=== PATIENT | female | born 1940 | race Caucasian/White ===

== ENCOUNTER → 2016-08-01 | Outpatient (CLI) | payer OTHER, MEDICARE ==
[~2016-08-01] MED LIST: ASPI81TA28 PO; ATOR-22 PO; MULT-506 PO
--- NOTE | 2016-08-01 13:36 | DIAGNOSTIC IMAGING REPORT ---
NUCLEAR GASTRIC EMPTYING STUDY: CLINICAL HISTORY: R10.13 Epigastric [id number] COMPARISON STUDY: None TECHNIQUE: Following the oral administration of 1.1 mCi of technetium 99m sulfur colloid in egg sandwich and 8 ounces of water, static abdominal images are performed anteriorly and posteriorly at 0 minutes, 1 hour, 2 hours, and 4 hour time intervals. Gastric emptying was calculated utilizing the geometric mean method. FINDINGS: There is approximately 78 % gastric activity remaining at the 1 hour time interval, 45 % at the 2 hour time interval (normal is less than 60%), and 12 % remaining at the 4 hour time interval (normal is less than 10%). These findings are consistent with slight routine gastric contents on the 4 hour image. IMPRESSION: Normal 1 hour and 2 hour gastric emptying. Slightly increased retained gastric contents on the 4 hour image with 12% retention (normal less than 10%). Electronically signed by: Thomas Alva M.D. 08/01/2016 1:35 PM Dictated Date/Time: 08/01/2016 1:26 PM
== END | disposition home or self-care (01) ==
LOC: C.NUCL 08:22
PROVIDERS: ATTEND Internal Medicine
DX: R10.13 Epigastric pain (principal)

== ENCOUNTER 2018-11-23 19:37 | Inpatient (IN) ==
[2018-11-23] MEDS ORDERED: ASPIRIN CHEW 324 MG ONE (19:41)
[2018-11-23] MEDS ORDERED: ONDANSETRON INJ 2 MG/ML 2 ML VIAL ONE (19:41)
[2018-11-23] MEDS ORDERED: MAGNESIUM SULFATE / D5W 1 GM/100 ML BAG IV ONE (19:59)
[2018-11-23] MEDS ORDERED: METOPROLOL TARTRATE 1 MG/ML VIAL IV STA (20:04)
[2018-11-23 20:21] LABS: Basophils # (auto) 0.02 K/uL (0-0.2); Basophils % (auto) 0.2 %; Eosinophils # (auto) 0.02 K/uL (0-0.5); Eosinophils % (auto) 0.2 %; Hematocrit (blood only) 39.2 % (37-47); Hemoglobin 13.2 g/dL (12.0-16.0); Immature Granulocytes # (auto) 0.02 K/uL (0.00-0.02); Immature Granulocytes % (auto) 0.2 %; Lymphocytes # (auto) 1.01 K/uL (1.2-3.4); Lymphocytes % (auto) 12.6 %; Mean Corpuscular Hgb Conc 33.7 g/dL (32-36); Mean Corpuscular Volume 89.3 fL (80-100); Mean Platelet Volume 10.7 fL (7.4-10.4); Monocytes # (auto) 0.29 K/uL (0.11-0.59); Monocytes % (auto) 3.6 %; Neutrophils # (auto) 6.68 K/uL (1.4-6.5); Neutrophils % (auto) 83.2 %; Platelet Count 189 K/uL (130-400); RDW Coefficient of Variation 14.1 % (11.5-14.5); RDW Standard Deviation 46.4 fL (36.4-46.3); Red Blood Count 4.39 M/uL (4.2-5.4); White Blood Count 8.04 K/uL (4.8-10.8)
[2018-11-23 20:23] LABS: iSTAT Creatinine 0.7 mg/dl (0.6-1.3); iSTAT Hemoglobin 13.9 g/dl (12.0-16.0); iSTAT Ionized Calcium 1.14 mmol/l (1.12-1.32)
[2018-11-23 20:37] LABS: Alanine Aminotransferase 52 U/L (12-78); Aspartate Aminotransferase 25 U/L (15-37); BUN Creatinine Ratio 19.7 (10-20); Blood Urea Nitrogen 17 mg/dl (7-18); Calcium 9.7 mg/dl (8.5-10.1); Carbon Dioxide 25 mmol/L (21-32); Chloride 108 mmol/L (98-107); Creatinine Clr Calc Pharmacy 48.1 ml/min; Est GFR (African American) 74.5; Est GFR (Non-African American) 64.3; Glucose 129 mg/dl (70-99); Potassium 4.1 mmol/L (3.5-5.1); Sodium 142 mmol/L (136-145)
[2018-11-23 20:42] LABS: Albumin Globulin Ratio 1.1 (0.9-2); Alkaline Phosphatase 135 U/L (45-117); Bilirubin,Total 0.6 mg/dl (0.2-1); Creatine Kinase 145 U/L (26-192); Creatine Kinase MB 1.9 ng/ml (0.5-3.6); Globulin 3.5 gm/dl (2.5-4.0); Total Protein 7.5 gm/dl (6.4-8.2); Troponin I < 0.015 ng/ml (0-0.045)
--- NOTE | 2018-11-23 20:53 | XRay Report ---
XR chest 1V portable CLINICAL HISTORY: Atypical chest pain COMPARISON STUDY: 04/27/2015 FINDINGS: The heart is at the upper limits of normal in size. There is no failure. There is no focal pulmonary consolidation. There are no pleural effusions.[ IMPRESSION: No active disease in the chest. Electronically signed by: Thomas Alva M.D. 11/23/2018 8:52 PM
[2018-11-23] MEDS ORDERED: NITROGLYCERIN 2% OINTMENT 30GM TUBE EXT STA (21:18)
[2018-11-23 21:27] LABS: Partial Thromboplastin Ratio 0.8; Partial Thromboplastin Time 21.4 Seconds (21.0-31.0); Prothrombin Time 10.2 Seconds (9.0-12.0)
--- NOTE | 2018-11-23 22:13 | History & Physical Report ---
Date of Service November 23, 2018 Assessment & Plan (1) Chest pain: 78 y/o F Hx HTN, HLD, GERD, CAD/angina. She underwent a scheduled cardiac cath 10/19/18 which demonstrated 70% stenosis of the ostial branch of the LAD. A stent could not practically be placed and it was not clear if this was related to her CP. She was placed on high-intensity statin therapy as a result. She presents with acute onset of central CP which she describes as burning in character. The pain is nonradiating, accompanied by lightheadedness, nausea and an episode of vomiting. She denies SOB or diaphoresis. On arrival to the ER she appeared to be fluctuating between a sinus rhythm and AF. Her rate was in the 70s. She was provided with a low dose of B carlos which reduced her rate to the 30s for a brief period and then into the 50s and 60s. She appeared to be exhibiting intermittent 2nd degree heart block and slow AF at that point, although she remained asymptomatic shortly after her arrival in the ER. It is not clear if her erratic rhythm was related to her symptoms therefore. Initial labs are unremarkable including a negative troponin. 1) CP - unclear if related to arrhythmias. She will be monitored on telemetry, fully anticoagulated, cont ASA, statin. Consult cardio. Did not tolerate beta blockers. Serial enzymes ordered. 2) Arrhythmias - including AF and possibly heart block. No additional meds. Monitor on telemetry. Eventually, if she is prone to symptomatic AF and cannot tolerate a rate agent, she may need evaluation for a pacer. 3) HTN - hold diltiazem - can sub for an CHEO if needed. 4) HLD - cont statin 5) GERD - cont famotidine Full code - Heparin Total time for this admit including review of labs, meds, imaging, records - discussion with pt and ER attending 35 min. Present on Admission?: No History of Present Illness Chief Complaint: Chest pain Primary Care Provider: Virgilio Wray MD 78 y/o F Hx HTN, HLD, GERD, CAD/angina. She underwent a scheduled cardiac cath 10/19/18 which demonstrated 70% stenosis of the ostial branch of the LAD. A stent could not practically be placed and it was not clear if this was related to her CP. She was placed on high-intensity statin therapy as a result. She presents with acute onset of central CP which she describes as burning in character. The pain is nonradiating, accompanied by lightheadedness, nausea and an episode of vomiting. She denies SOB or diaphoresis. On arrival to the ER she appeared to be fluctuating between a sinus rhythm and AF. Her rate was in the 70s. She was provided with a low dose of B carlos which reduced her rate to the 30s for a brief period and then into the 50s and 60s. She appeared to be exhibiting intermittent 2nd degree heart block and slow AF at that point, although she remained asymptomatic shortly after her arrival in the ER. It is not clear if her erratic rhythm was related to her symptoms therefore. Initial labs are unremarkable including a negative troponin. PMH: 1) CAD - 70% ostial stenosis - medically managed. 2) HTN 3) HLD 4) GERD Surgical: Distant history of lumbar surgery Social: Does not drink or smoke Family: Father owing to a CVA Allergies Allergy/AdvReac Type Severity Reaction Status Date / Time No Known Allergies Allergy Verified 11/23/18 19:59 Home Medications Home Medications Medication Instructions Recorded Confirmed Type famotidine 40 mg PO BID 10/15/18 11/23/18 History atorvastatin 80 mg PO HS 11/23/18 11/23/18 History diltiazem HCl 180 mg PO QAM 11/23/18 11/23/18 History multivitamin 1 tab PO QAM 11/23/18 11/23/18 History Past Med/Surg History Medical History No significant past medical history (Chronic) Social History Preferred Language: Greek Beliefs That Will Affect Care: None Current Living Situation: Alone Feels Safe at Home: Yes Smoking Status: Never smoker Hx Alcohol Use: No Hx Substance Use: No Review of Systems Review of Systems: Gen: Denies fevers, night sweats, rigors, fatigue, malaise, weight loss/gain ENT: Denies congestion, throat pain, hearing loss Eyes: Denies acute visual changes CV: CP as above Pulmonary: Denies SOB, cough, wheezing GI: Denies N/V, diarrhea, constipation Neuro: Denies acute or unilateral weakness, acute gait impairment, headache or acute visual changes Musculoskeletal: Denies joint pain, inflammation Endocrine: Denies polydipsia, polyuria Skin: Denies acute rashes or ulcers Physical Exam Physical Exam: General: AAO x 3, no distress ENT: No erythema or exudates, no thrush Eyes: GUILLERMINA, EOMI Head and neck: Normocephalic, atraumatic, No JVD, neck is supple. Chest/heart: Nontender, S1,2, irreg, no murmurs, no gallops Lungs: CTAB, no wheezing or crackles Abdomen: Nontender, nondistended, BS+ Neuro: AAO x 3, speech is clear, no unilateral weakness or loss of sensation, coordination intact Musculoskeletal: No joint inflammation, muscle tenderness, FROM Skin: No acute rashes or ulcers Extremities: No clubbing, cyanosis, edema Results & Data Vital Signs (Past 12 Hours) Vital Signs Temp Pulse Resp BP Pulse Ox 11/23/18 21:31 69 19 147/65 H 94 11/23/18 21:01 52 L 20 134/61 96 11/23/18 20:31 41 L 19 122/59 L 96 11/23/18 20:20 58 L 19 138/55 L 97 11/23/18 20:11 138/56 L 11/23/18 20:01 60 19 138/56 L 99 11/23/18 19:55 97.7 F 62 20 133/61 98 Diagnostic Findings EKG: Initial: AF with a rate in the 70s Follow-up: Sinus with sinus arrhythmia - possibly 2' heart block - rate 50s PG Care Time/CCT Total # of Minutes Spent Total Time Spent with Patient: Total time spent is greater than 50% in coordination of care (as documented) at patient's floor/unit and/or counseling patient: (1) Chest pain Chest pain type: unspecified Qualified Code(s): R07.9 - Chest pain, unspecified
[2018-11-23] MEDS ORDERED: ALUMINUM/MAGNESIUM SUSP 30 ML UDC PO PRN (23:18)
[2018-11-23] MEDS ORDERED: POLYETHYLENE (MIRALAX) 17 GM PACK PO PRN (23:18)
[2018-11-23] MEDS ORDERED: MAGNESIUM HYDROXIDE SUSP 30 ML UDC PO PRN (23:18)
[2018-11-23] MEDS ORDERED: ONDANSETRON INJ 2 MG/ML 2 ML VIAL IV PRN (23:18)
[2018-11-23] MEDS ORDERED: NITROGLYCERIN SL 0.4 MG/TAB TAB SL PRN (23:18)
[2018-11-23] MEDS ORDERED: ACETAMINOPHEN 325 MG TAB PO PRN (23:18)
[2018-11-23] MEDS ORDERED: D5NSS + 20MEQ KCL 20 MEQ/1,000 ML BAG IV SCH (23:30)
--- NOTE | 2018-11-23 23:35 | Emergency Department Note ---
Entered by Dalila Granda acting as a scribe for Dima Easley MD History of Present Illness General Chief complaint: Chest Pain Time Seen by Provider: 11/23/18 19:51 Source: patient Mode of arrival: EMS History of Present Illness Provider complaint: chest pain Onset (ago): hour(s) 4 Location: chest Radiation: non-radiation Associated symptoms: + nausea/vomiting Treatments prior to arrival: aspirin The patient is a 78 year old female who presents to the Emergency Room with complaints of chest pain. The patient states that she has been having chest pressure since 1630 today. She reports that she does not currently have chest pain, but she is experiencing nausea. She reports that she vomited twice today. She states that when the pain arrived, it felt like heat in her chest. She reports that she was also lightheaded earlier today. The patient notes that she had a cardiac catheter placed one month ago, but denies any stents put in place. The patient notes that she took aspirin prior to arrival. Home Medications Home Medications Medication Instructions Recorded Confirmed Type famotidine 40 mg PO BID 10/15/18 11/27/18 History atorvastatin 80 mg PO HS 11/23/18 11/27/18 History diltiazem HCl 180 mg PO QAM 11/23/18 11/27/18 History aspirin 81 mg tablet,delayed 81 mg PO DAILY #30 tab 11/25/18 11/27/18 Rx release Allergies Allergy/AdvReac Type Severity Reaction Status Date / Time No Known Allergies Allergy Verified 11/27/18 10:15 Past Med/Surg History Medical History Atypical chest pain No significant past medical history (Chronic) Surgical History History of cardiac cath History of carpal tunnel release History of cataract surgery History of ear surgery History of kidney surgery Family History Father Hypertension Stroke Mother Cardiac disorder Sister Stroke Social History Preferred Language: Bulgarian Communication Ability: Effective Beliefs That Will Affect Care: None Current Living Situation: Alone Feels Safe at Home: Yes Smoking Status: Never smoker Hx Alcohol Use: No Hx Substance Use: No Review of Systems See HPI for pertinent positives & negatives. and A total of 10 systems reviewed and were otherwise negative Physical Exam Vital Signs Vital Signs - 24 hr 11/23/18 19:55 11/23/18 20:01 11/23/18 20:05 Temperature 36.5 C Temperature Source Oral Sepsis Recent Fever Within 48 Hours No Sepsis New/Unexplained Change in Mental Status No Sepsis Action Taken by Nursing No Action Required Pulse Rate 62 60 Pulse Rate from SpO2 Sensor 60 Respiratory Rate 20 19 Respiratory Effort / Characteristics Non-Labored Spontaneous Respiratory Depth Normal Blood Pressure 133/61 138/56 L Blood Pressure Mean 85 83 Pulse Oximetry 98 99 Oxygen Delivery Method Room Air Room Air Room Air 11/23/18 20:11 11/23/18 20:20 11/23/18 20:31 Temperature Temperature Source Sepsis Recent Fever Within 48 Hours Sepsis New/Unexplained Change in Mental Status Sepsis Action Taken by Nursing Pulse Rate 58 L 41 L Pulse Rate from SpO2 Sensor 56 L 44 L Respiratory Rate 19 19 Respiratory Effort / Characteristics Respiratory Depth Blood Pressure 138/56 L 138/55 L 122/59 L Blood Pressure Mean 82 80 Pulse Oximetry 97 96 Oxygen Delivery Method Room Air Room Air 11/23/18 21:01 11/23/18 21:31 Temperature Temperature Source Sepsis Recent Fever Within 48 Hours Sepsis New/Unexplained Change in Mental Status Sepsis Action Taken by Nursing Pulse Rate 52 L 69 Pulse Rate from SpO2 Sensor 51 L 78 Respiratory Rate 20 19 Respiratory Effort / Characteristics Respiratory Depth Blood Pressure 134/61 147/65 H Blood Pressure Mean 85 92 Pulse Oximetry 96 94 Oxygen Delivery Method Room Air Room Air GENERAL: Awake, alert, well-appearing, in no acute distress HENT: Normocephalic, atraumatic. Oropharynx unremarkable. EYES: Normal conjunctiva. Sclera non-icteric. NECK: Supple. No nuchal rigidity. FROM. No JVD. RESPIRATORY: Clear to auscultation. CARDIAC: Regular rate, normal rhythm. Extremities warm and well perfused. Pulses equal. ABDOMEN: Soft, non-distended. No tenderness to palpation. No rebound or guarding. No masses. RECTAL: Deferred. MUSCULOSKELETAL: Chest examination reveals no tenderness. The back is symmetrical on inspection without obvious abnormality. There is no CVA tenderness to palpation. No joint edema. LOWER EXTREMITIES: Calves are equal size bilaterally and non-tender. No edema. No discoloration. NEURO: Normal sensorium. No sensory or motor deficits noted. SKIN: No rash or jaundice noted. Course 1953: The patient was evaluated in room C9, and a complete history and physical examination were performed. 2118: I reviewed the patient's [facility] He will evaluate the patient for further management. Consultations Consultation #1: Dr. Hoff- [facility] Hospitalist Time: :19 Administered Medications Discontinued Medications Aspirin (Ecotrin Ectab) 81 mg PO QAM MAYO Stop: 12/24/18 08:59 Last Admin: 11/24/18 07:56 Dose: 81 mg Documented by: [id number] Famotidine (Pepcid) 40 mg PO BID MAYO Stop: 12/24/18 08:59 Last Admin: 11/24/18 07:56 Dose: 40 mg Documented by: [id number] Heparin Sodium (Porcine) (Heparin Sodium (Porcine)) 5,000 units SQ Q8 MAYO Stop: 12/24/18 05:59 Last Admin: 11/24/18 06:14 Dose: 5,000 units Documented by: [id number] Cosigned by: [id number] Magnesium Sulfate/Dextrose (Magnesium Sulfate / D5w) 1 gm in 100 mls @ 100 mls/hr IV ONE ONE Stop: 11/23/18 20:58 Last Infusion: 11/23/18 21:24 Dose: 0 mls/hr Documented by: [id number] Admin: 11/23/18 20:11 Dose: 100 mls/hr Documented by: [id number] Potassium Chloride/Dextrose/Sod Cl (D5nss + 20meq Kcl) 20 meq in 1,000 mls @ 80 mls/hr IV .[id number] MAYO Stop: 11/24/18 11:59 Last Infusion: 11/24/18 10:29 Dose: 0 mls/hr Documented by: [id number] Admin: 11/24/18 00:02 Dose: 80 mls/hr Documented by: [id number] Metoprolol Tartrate (Lopressor) 5 mg IV NOW STA Stop: 11/23/18 20:05 Last Admin: 11/23/18 20:11 Dose: 5 mg Documented by: [id number] Nitroglycerin (Nitro-Bid 2%) 1 inch EXT NOW STA Stop: 11/23/18 21:19 Last Admin: 11/23/18 21:26 Dose: 1 inch Documented by: [id number] Medical Decision Making Differential Diagnosis Differential diagnosis: Etiologies such as cardiac ischemia, aortic dissection, pulmonary embolism, pneumonia, pneumothorax, musculoskeletal, infections, eren carditis, myocarditis, esophageal rupture, gastrointestinal, as well as others were entertained. Medical Records Attestation: I reviewed the patient's medical records. Home Medications Current Medication List: was personally reviewed by me Laboratory Data Attestation: I reviewed the patient's lab results. Result diagrams: 11/23/18 20:09 11/23/18 20:09 Lab Results 11/23/18 11/23/18 11/23/18 Range/Units 20:09 20:09 20:10 WBC 8.04 (4.8-10.8) K/uL RBC 4.39 (4.2-5.4) M/uL Hgb 13.2 (12.0-16.0) g/dL POC Hgb 13.9 (12.0-16.0) g/dl Hct 39.2 (37-47) % POC Hct 41 (37-47) % MCV 89.3 (80-100) fL MCH 30.1 (25-34) pg MCHC 33.7 (32-36) g/dL RDW Std Deviation 46.4 H (36.4-46.3) fL RDW Coeff of Salazar 14.1 (11.5-14.5) % Plt Count 189 (130-400) K/uL MPV 10.7 H (7.4-10.4) fL Immature Gran % (Auto) 0.2 % Neut % (Auto) 83.2 % Lymph % (Auto) 12.6 % Coles % (Auto) 3.6 % Eos % (Auto) 0.2 % Baso % (Auto) 0.2 % Immature Gran # (Auto) 0.02 (0.00-0.02) K/uL Neut # (Auto) 6.68 H (1.4-6.5) K/uL Lymph # (Auto) 1.01 L (1.2-3.4) K/uL Coles # (Auto) 0.29 (0.11-0.59) K/uL Eos # (Auto) 0.02 (0-0.5) K/uL Baso # (Auto) 0.02 (0-0.2) K/uL PT (9.0-12.0) Seconds INR (0.9-1.1) APTT (21.0-31.0) Seconds PTT Ratio POC Sodium 142 (135-144) mEq/L Sodium 142 (136-145) mmol/L POC Potassium 4.0 (3.3-5.0) mEq/L Potassium 4.1 (3.5-5.1) mmol/L POC Chloride 104 (101-112) mEq/L Chloride 108 H (98-107) mmol/L Carbon Dioxide 25 (21-32) mmol/L POC Total CO2 22 L (24-31) mEq/l Anion Gap 9.0 (3-11) POC Anion Gap 21.0 (16-25) mmol/L POC BUN 17 (7-18) mg/dl BUN 17 (7-18) mg/dl Creatinine 0.87 (0.6-1.2) mg/dl POC Creatinine 0.7 (0.6-1.3) mg/dl Est Cr Clr Drug Dosing 48.1 ml/min Est GFR ( Amer) 74.5 Est GFR (Non-Af Amer) 64.3 BUN/Creatinine Ratio 19.7 (10-20) Glucose 129 H (70-99) mg/dl POC Glucose (other) 138 H (70-99) mg/dl Calcium 9.7 (8.5-10.1) mg/dl POC Ioniz Calcium Jered 1.14 (1.12-1.32) mmol/l Total Bilirubin 0.6 (0.2-1) mg/dl AST 25 (15-37) U/L ALT 52 (12-78) U/L Alkaline Phosphatase 135 H (45-117) U/L Total Creatine Kinase 145 (26-192) U/L CK-MB (CK-2) 1.9 (0.5-3.6) ng/ml CK/CKMB % Calc 1.3 (0-3.0) Troponin I < 0.015 (0-0.045) ng/ml Total Protein 7.5 (6.4-8.2) gm/dl Albumin 4.0 (3.4-5.0) gm/dl Globulin 3.5 (2.5-4.0) gm/dl Albumin/Globulin Ratio 1.1 (0.9-2) Lipase 160 (73-393) U/L 11/23/18 Range/Units 20:10 WBC (4.8-10.8) K/uL RBC (4.2-5.4) M/uL Hgb (12.0-16.0) g/dL POC Hgb (12.0-16.0) g/dl Hct (37-47) % POC Hct (37-47) % MCV (80-100) fL MCH (25-34) pg MCHC (32-36) g/dL RDW Std Deviation (36.4-46.3) fL RDW Coeff of Salazar (11.5-14.5) % Plt Count (130-400) K/uL MPV (7.4-10.4) fL Immature Gran % (Auto) % Neut % (Auto) % Lymph % (Auto) % Coles % (Auto) % Eos % (Auto) % Baso % (Auto) % Immature Gran # (Auto) (0.00-0.02) K/uL Neut # (Auto) (1.4-6.5) K/uL Lymph # (Auto) (1.2-3.4) K/uL Coles # (Auto) (0.11-0.59) K/uL Eos # (Auto) (0-0.5) K/uL Baso # (Auto) (0-0.2) K/uL PT 10.2 (9.0-12.0) Seconds INR 1.0 (0.9-1.1) APTT 21.4 (21.0-31.0) Seconds PTT Ratio 0.8 POC Sodium (135-144) mEq/L Sodium (136-145) mmol/L POC Potassium (3.3-5.0) mEq/L Potassium (3.5-5.1) mmol/L POC Chloride (101-112) mEq/L Chloride (98-107) mmol/L Carbon Dioxide (21-32) mmol/L POC Total CO2 (24-31) mEq/l Anion Gap (3-11) POC Anion Gap (16-25) mmol/L POC BUN (7-18) mg/dl BUN (7-18) mg/dl Creatinine (0.6-1.2) mg/dl POC Creatinine (0.6-1.3) mg/dl Est Cr Clr Drug Dosing ml/min Est GFR ( Amer) Est GFR (Non-Af Amer) BUN/Creatinine Ratio (10-20) Glucose (70-99) mg/dl POC Glucose (other) (70-99) mg/dl Calcium (8.5-10.1) mg/dl POC Ioniz Calcium Jered (1.12-1.32) mmol/l Total Bilirubin (0.2-1) mg/dl AST (15-37) U/L ALT (12-78) U/L Alkaline Phosphatase (45-117) U/L Total Creatine Kinase (26-192) U/L CK-MB (CK-2) (0.5-3.6) ng/ml CK/CKMB % Calc (0-3.0) Troponin I (0-0.045) ng/ml Total Protein (6.4-8.2) gm/dl Albumin (3.4-5.0) gm/dl Globulin (2.5-4.0) gm/dl Albumin/Globulin Ratio (0.9-2) Lipase (73-393) U/L Imaging Data Radiologist's Impression: Radiology results as stated below per my review and the radiologist's interpretation: XR chest 1V portable CLINICAL HISTORY: Atypical chest pain COMPARISON STUDY: 04/27/2015 FINDINGS: The heart is at the upper limits of normal in size. There is no failure. There is no focal pulmonary consolidation. There are no pleural effusions.[ IMPRESSION: No active disease in the chest. Electronically signed by: Thomas Alva M.D. 11/23/2018 8:52 PM ECG Data Attestation: I personally reviewed and interpreted this ECG as follows: Indication: chest pain Rate (beats per minute): 62 Rhythm: atrial fibrillation Findings: no ST depression and no ST elevation Additional Comments: A second EKG reads: normal sinus rhythm, rate of 63, no ST elevation, or ST depression Third EKG at 2124 is unchanged from previous read Blood Pressure Blood Pressure Findings: Normal blood pressure Blood Pressure Disposition: did not require urgent referral MDM Narrative This is a 78-year-old female who presents emergency department complaining of chest burning. On arrival to the emergency department the patient appears to be moving between normal sinus rhythm along with atrial fibrillation. She is also throwing frequent PVCs. Due to the nature of the arrhythmia I did discuss the case with the die storage clerk on-call who recommended trying a beta-carlos. This resulted in the patient's heart rate decreasing into the 30s. Due to this in the irregular arrhythmias I did discuss the case with the hospitalist service who agreed to admit the patient. Patient and family were in agreement with the treatment plan. Impression & Plan Chest pain Discharge Plan Visit Data *Final* Discharge Date/Time: 11/23/18 22:25 Chief Complaint: Chest Pain ED Provider: Dima Easley Discharge Problem: Chest pain Patient Disposition: Admitted As Inpatient Discharge Instructions Interventions: ED Discharge Assessment Last Done: 11/23/18 22:25 Discharge Problem: Chest pain Qualifiers: Chest pain type: unspecified Qualified Code(s): R07.9 - Chest pain, unspecified The scribe's documentation has been prepared under my direction and personally reviewed by me in its entirety. I confirm that the note above accurately reflects all work, treatment, procedures, and medical decision making performed by me.
[2018-11-24] MEDS ORDERED: HEPARIN SOD 5,000 UNIT/0.5 ML VIAL SQ SCH (06:00)
--- NOTE | 2018-11-24 08:18 | Hospitalist Progress Note ---
Date of Service November 24, 2018 Assessment & Plan (1) Chest pain: 78 y/o F Hx HTN, HLD, GERD, CAD/angina. She underwent a scheduled cardiac cath 10/19/18 which demonstrated 70% stenosis of the ostial branch of the LAD. A stent could not practically be placed and it was not clear if this was related to her CP. She was placed on high-intensity statin therapy as a result. She presents with acute onset of central CP which she describes as burning in character. The pain is nonradiating, accompanied by lightheadedness, nausea and an episode of vomiting. She denies SOB or diaphoresis. On arrival to the ER she appeared to be fluctuating between a sinus rhythm and AF. Her rate was in the 70s. She was provided with a low dose of B acrlos which reduced her rate to the 30s for a brief period and then into the 50s and 60s. She appeared to be exhibiting intermittent 2nd degree heart block and slow AF at that point, although she remained asymptomatic shortly after her arrival in the ER. It is not clear if her erratic rhythm was related to her symptoms therefore. Initial labs are unremarkable including a negative troponin. 1) CP - unclear if related to arrhythmias. She will be monitored on telemetry, fully anticoagulated, cont ASA, statin. Consult cardio. Did not tolerate beta blockers. Serial enzymes ordered. 2) Arrhythmias - including AF and possibly heart block. No additional meds. Monitor on telemetry. Eventually, if she is prone to symptomatic AF and cannot tolerate a rate agent, she may need evaluation for a pacer. 3) HTN - hold diltiazem - can sub for an CHEO if needed. 4) HLD - cont statin 5) GERD - cont famotidine Full code - Heparin Total time for this admit including review of labs, meds, imaging, records - discussion with pt and ER attending 35 min. Results & Data Vital Signs (Past 12 Hours) Vital Signs Temp Pulse Pulse Resp BP BP Pulse Ox 11/24/18 07:53 36.8 C 46 L 16 136/63 96 11/24/18 04:00 36.8 C 42 L 17 133/57 L 94 11/23/18 23:44 36.7 C 49 L 17 122/58 L 94 11/23/18 22:53 36.8 C 55 L 16 167/71 H 95 06/23/19 22:01 67 14 153/73 H 98 11/23/18 21:31 69 19 147/65 H 94 11/23/18 21:01 52 L 20 134/61 96 11/23/18 20:31 41 L 19 122/59 L 96 11/23/18 20:20 58 L 19 138/55 L 97 PG Care Time/CCT Total # of Minutes Spent Total Time Spent with Patient: Total time spent is greater than 50% in coordination of care (as documented) at patient's floor/unit and/or counseling patient: (1) Chest pain Chest pain type: unspecified Qualified Code(s): R07.9 - Chest pain, unspecified
[2018-11-24] MEDS ORDERED: ASPIRIN 81 MG ECTAB PO SCH (09:00)
[2018-11-24] MEDS ORDERED: FAMOTIDINE 20 MG TAB PO SCH (09:00)
--- NOTE | 2018-11-24 10:47 | Cardiology Consultation ---
Date of Consultation November 24, 2018 Assessment & Plan (1) Chest pain: I do not believe her symptoms of chest discomfort represent an acute coronary syndrome or angina. She was evaluated for coronary stenosis based on frequent PVCs, atypical chest complaints and an abnormal stress test. However her coronary angiography was not consistent with her symptoms and she has not had symptoms of any exertional angina. The symptoms she experienced yesterday were atypical in that they were not exertional. They involved vomiting. They lasted for several hours without any elevation in her cardiac biomarkers. Do not believe this represented a coronary syndrome. She feels well this morning. Perhaps this represented some form gastrointestinal disturbance and woman with known reflux and hiatal hernia. (2) Coronary artery disease: She is known to have an element of coronary disease. This was evaluated with invasive study a few weeks ago. He did appear to have some ostial LAD disease, but intracoronary ultrasound did not reveal significant ostial disease. Surprisingly, she did have some more significant disease in the mid LAD which was not apparent on angiography. However, she has not had exertional symptoms which should be the case if this were an obstructive lesion. Do not believe her current symptoms are related. Certainly she did not have an acute coronary syndrome leading up to today's admission. She should continue on her current outpatient medical regimen. (3) Abnormal electrocardiogram [ECG] [EKG]: Her initial EKG was interpreted as atrial fibrillation. However, the EKG available in her record simply demonstrates artifact with underlying sinus rhythm and sinus arrhythmia. Review of her telemetry did not reveal any evidence of atrial fibrillation. She has some irregularity in her heart rhythm, but there is no evidence of heart block either. She is known to have frequent PVCs in atrial ectopy. However, she has never been symptomatic from the arrhythmia. I do not believe this represents a change in her known rhythm difficulties. Do not believe this requires any additional evaluation. I do not believe this requires any change in her medical therapy. History of Present Illness Reason for Consultation: The patient is a 78-year-old woman known to me from the outpatient setting who presented with symptoms of chest burning and vomiting. Patient states she was feeling well yesterday when approximately 2:30 p.m. she began to experience a heat in the precordium. This was somewhat unc omfortable and moderate in severity. It later progressed to a sense of nausea and eventually vomiting. The patient felt like the symptoms would subside and waited several hours before contacting a friend who brought her to the emergency room. She continued to have some symptoms in the emergency room in even afterwards. It is unclear what eventually resolved her symptoms. She claims to have had similar symptoms in the past but not to this severity and not involving vomiting. There was no exertional component. This morning she feels quite well and states that his symptoms have resolved entirely. She did undergo coronary angiography a few weeks ago. That did identify a concerning lesion in the mid LAD, but the patient had not had symptoms of exertional angina and no intervention was performed. Since that procedure the patient has maintained her usual level of activity which includes frequent walking for 45 minutes at a time. This walk often involves at ascending hills. She did not report any symptoms of chest discomfort or limiting dyspnea associated with that activity. Attending Physician: Adrian Flores MD Allergies Allergy/AdvReac Type Severity Reaction Status Date / Time No Known Allergies Allergy Verified 11/23/18 19:59 Home Medications Home Medications Medication Instructions Recorded Confirmed Type famotidine 40 mg PO BID 10/15/18 11/23/18 History atorvastatin 80 mg PO HS 11/23/18 11/23/18 History diltiazem HCl 180 mg PO QAM 11/23/18 11/23/18 History multivitamin 1 tab PO QAM 11/23/18 11/23/18 History Patient History Medical History No significant past medical history (Chronic) Social History Preferred Language: Serbian Communication Ability: Effective Beliefs That Will Affect Care: None Current Living Situation: Alone Feels Safe at Home: Yes Smoking Status: Never smoker Hx Alcohol Use: No Hx Substance Use: No Review of Systems Review of Systems: All systems reviewed & are unremarkable except as noted in HPI & below She has not report any recent fevers or chills. No upper respiratory symptoms. No abdominal pain. No change in her bowel movements. No close contacts with similar symptoms. No sense of palpitation Physical Exam Physical Exam: She is alert and oriented x3. Mood affect appear normal. She answered all questions appropriately. HEENT: Sclerae are anicteric. Pupils are equal and reactive to light and accommodation. Extraocular movements were intact. Neuro: Cranial nerves intact Neck: Examination of the submandibular region did not reveal any significant lymphadenopathy. Carotids are palpable bilaterally and free of bruits on auscultation. There was no evidence of jugular venous distention. The thyroid was not enlarged. Lungs: Lungs are clear to auscultation bilaterally. There are no rales wheezes or rhonchi. She has normal respiratory effort without use of accessory muscles. There is normal pulmonary excursion. Cardiac: The rhythm was regular. S1 and S2 were normal. There are no murmurs on examination. The PMI was not markedly displaced on palpation. Abdomen: The abdomen was soft and nontender. Extremities: Patient has bilateral radial pulses that are equal in intensity. There is no evidence cyanosis or clubbing. There was no evidence of significant peripheral edema bilaterally. Skin: There are no rashes noted on examination today. Results & Data Vital Signs (Past 12 Hours) Vital Signs Temp Pulse Resp BP Pulse Ox 11/24/18 10:32 36.8 C 46 L 16 136/63 96 11/24/18 07:53 36.8 C 46 L 16 136/63 96 11/24/18 04:00 36.8 C 42 L 17 133/57 L 94 11/23/18 23:44 36.7 C 49 L 17 122/58 L 94 11/23/18 22:53 36.8 C 55 L 16 167/71 H 95 Laboratory Results Abnormal Lab Results 11/23/18 11/23/18 11/23/18 20:09 20:09 20:10 WBC 8.04 RBC 4.39 Hgb 13.2 POC Hgb 13.9 Hct 39.2 POC Hct 41 MCV 89.3 MCH 30.1 MCHC 33.7 RDW Std Deviation 46.4 H RDW Coeff of Salazar 14.1 Plt Count 189 MPV 10.7 H Immature Gran % (Auto) 0.2 Neut % (Auto) 83.2 Lymph % (Auto) 12.6 [place] % (Auto) 3.6 Eos % (Auto) 0.2 Baso % (Auto) 0.2 Immature Gran # (Auto) 0.02 Neut # (Auto) 6.68 H Lymph # (Auto) 1.01 L [place] # (Auto) 0.29 Eos # (Auto) 0.02 Baso # (Auto) 0.02 PT INR APTT PTT Ratio POC Sodium 142 Sodium 142 POC Potassium 4.0 Potassium 4.1 POC Chloride 104 Chloride 108 H Carbon Dioxide 25 POC Total CO2 22 L Anion Gap 9.0 POC Anion Gap 21.0 POC BUN 17 BUN 17 Creatinine 0.87 POC Creatinine 0.7 Est Cr Clr Drug Dosing 48.1 Est GFR ( Amer) 74.5 Est GFR (Non-Af Amer) 64.3 BUN/Creatinine Ratio 19.7 Glucose 129 H POC Glucose (other) 138 H Calcium 9.7 POC Ioniz Calcium Jered 1.14 Total Bilirubin 0.6 AST 25 ALT 52 Alkaline Phosphatase 135 H Total Creatine Kinase 145 CK-MB (CK-2) 1.9 CK/CKMB % Calc 1.3 Troponin I < 0.015 Total Protein 7.5 Albumin 4.0 Globulin 3.5 Albumin/Globulin Ratio 1.1 Lipase 160 11/23/18 11/23/18 11/24/18 20:10 23:25 06:27 WBC RBC Hgb POC Hgb Hct POC Hct MCV MCH MCHC RDW Std Deviation RDW Coeff of Salazar Plt Count MPV Immature Gran % (Auto) Neut % (Auto) Lymph % (Auto) [place] % (Auto) Eos % (Auto) Baso % (Auto) Immature Gran # (Auto) Neut # (Auto) Lymph # (Auto) [place] # (Auto) Eos # (Auto) Baso # (Auto) PT 10.2 INR 1.0 APTT 21.4 PTT Ratio 0.8 POC Sodium Sodium POC Potassium Potassium POC Chloride Chloride Carbon Dioxide POC Total CO2 Anion Gap POC Anion Gap POC BUN BUN Creatinine POC Creatinine Est Cr Clr Drug Dosing Est GFR ( Amer) Est GFR (Non-Af Amer) BUN/Creatinine Ratio Glucose POC Glucose (other) Calcium POC Ioniz Calcium Jered Total Bilirubin AST ALT Alkaline Phosphatase Total Creatine Kinase CK-MB (CK-2) CK/CKMB % Calc Troponin I < 0.015 < 0.015 Total Protein Albumin Globulin Albumin/Globulin Ratio Lipase (1) Chest pain Chest pain type: unspecified Qualified Code(s): R07.9 - Chest pain, unspecified
--- NOTE | 2018-11-24 14:58 | Discharge Summary ---
Date of Service November 24, 2018 Admission HPI Per Admitting Provider 78 y/o F Hx HTN, HLD, GERD, CAD/angina. She underwent a scheduled cardiac cath 10/19/18 which demonstrated 70% stenosis of the ostial branch of the LAD. A stent could not practically be placed and it was not clear if this was related to her CP. She was placed on high-intensity statin therapy as a result. She presents with acute onset of central CP which she describes as burning in character. The pain is nonradiating, accompanied by lightheadedness, nausea and an episode of vomiting. She denies SOB or diaphoresis. On arrival to the ER she appeared to be fluctuating between a sinus rhythm and AF. Her rate was in the 70s. She was provided with a low dose of B carlos which reduced her rate to the 30s for a brief period and then into the 50s and 60s. She appeared to be exhibiting intermittent 2nd degree heart block and slow AF at that point, although she remained asymptomatic shortly after her arrival in the ER. It is not clear if her erratic rhythm was related to her symptoms therefore. Initial labs are unremarkable including a negative troponin. PMH: 1) CAD - 70% ostial stenosis - medically managed. 2) HTN 3) HLD 4) GERD Surgical: Distant history of lumbar surgery Social: Does not drink or smoke Family: Father owing to a CVA Principal Diagnosis non cardiac chest pain, suspect GI loss's Discharge Exam Constitutional well developed and average body habitus Eyes no conjunctival abnormality and no scleral abnormality Neck normal visual inspection and trachea midline Respiratory normal respiratory effort; no respiratory distress Auscultation: lungs clear to auscultation bilaterally Cardiovascular RRR, no murmur, no edema Gastrointestinal (Abdomen) normal bowel sounds, soft, nontender, no hepatosplenomegaly Musculoskeletal no cyanosis or clubbing, extremities motor strength 5/5 Discharge Data Allergies Allergy/AdvReac Type Severity Reaction Status Date / Time No Known Allergies Allergy Verified 11/23/18 19:59 Consultations 11/23/18 21:01 ED Decision to Admit Stat 11/23/18 23:18 Consult Cardiology Routine Hospital Course (1) Chest pain: 78 y/o F Hx HTN, HLD, GERD, CAD/angina. She underwent a scheduled cardiac cath 10/19/18 which demonstrated 70% stenosis of the ostial branch of the LAD. A stent could not practically be placed and it was not clear if this was related to her CP. She was placed on high-intensity statin therapy as a result. She presents with acute onset of central CP which she describes as burning in character. The pain is nonradiating, accompanied by lightheadedness, nausea and an episode of vomiting. She denies SOB or diaphoresis. On arrival to the ER she appeared to be fluctuating between a sinus rhythm and AF. Her rate was in the 70s. She was provided with a low dose of B carlos which reduced her rate to the 30s for a brief period and then into the 50s and 60s. She appeared to be exhibiting intermittent 2nd degree heart block and slow AF at that point, although she remained asymptomatic shortly after her arrival in the ER. It is not clear if her erratic rhythm was related to her symptoms therefore. Initial labs are unremarkable including a negative troponin. CP - cardiology did see and does not feel this is cardiac in nature cont ASA, statin. Consult cardio. Did not tolerate beta blockers. Serial enzymes ordered. Arrhythmias -cardiology does not feel is assured afib, does not recommend full anticoagulation HTN - diltiazem - HLD - cont statin GERD - cont famotidine Total Time Total Time Spent Total Time Spent (In Minutes): greater than 30 minutes were required to prepare discharge Discharge Plan Discharge Items Patient Disposition: Home - Self-Care Reason For Visit: CP Discharge Diagnosis: non cardiac chest pain Discharge Goals: Diagnostic testing Activity: Resume your previous activity Non-emergency contact: Primary Care Provider and Flag Signaler Call non-emergency contact if: you have any medication questions Follow-up/Referrals: Virgilio Wray III, MD [Primary Care Provider] - (follow up appointment at your primary care physician office- the office will call you with an appointment date and time) Diet: Heart Healthy Addtl Provider Instructions: please try to watch your diet please discuss your symptoms with our family doctor and follow up with Dr Christian Prescriptions: Continued famotidine 40 mg Tablet 40 mg PO BID RF: 0 multivitamin Tablet 1 tab PO QAM RF: 0 diltiazem HCl 180 mg capsule,extended release 24 hr 180 mg PO QAM RF: 0 atorvastatin 80 mg tablet 80 mg PO HS RF: 0 No Action aspirin [Adult Low Dose Aspirin] 81 mg tablet,delayed release (DR/EC) 81 mg PO DAILY Qty: 30 RF: 5 Stand-Alone Forms: Call Back Authorization, [facility]/Other Patient Handouts: Angina, GERD, GERD Lifestyle Changes, Heart Attack Warning Signs Discharge Orders: Discharge Order (Routine); Ordered 11/24/18 Ordered By: Adrian Flores Admission Data Admit Date/Time: 11/23/18 21:56 Attending Provider: Adrian Flores Admit Provider: Steven Hoff Primary Care Provider: Virgilio Wray III Other Providers: Steven Hoff ; Julio Archibald Service: Telemetry Other Interventions: Discharge Summary Assessment (RN) Last Done: 11/24/18 10:32 DC Date/Time DO NOT enter until pt leaves facility: 11/24/18 10:53
[2018-11-24] MEDS ORDERED: ATORVASTATIN 40 MG TAB PO SCH (21:00)
== END 2018-11-24 10:53 | disposition home or self-care (01) | DRG 313 ==
LOC: ED 19:37 → SUATTDRO 21:56 → 2S 21:56

== ENCOUNTER 2023-09-19 12:05 | Observation (INO) ==
[2023-09-19 12:59] LABS: Basophils # (auto) 0.03 K/uL (0.00-0.20); Basophils % (auto) 0.2 %; Eosinophils # (auto) 0.01 K/uL (0.00-0.50); Eosinophils % (auto) 0.1 %; Hematocrit (blood only) 45.5 % (37.0-47.0); Hemoglobin 14.9 g/dl (12.0-16.0); Immature Granulocytes # (auto) 0.06 K/uL (0.01-0.20); Immature Granulocytes % (auto) 0.5 %; Lymphocytes # (auto) 1.79 K/uL (1.20-3.40); Lymphocytes % (auto) 14.7 %; Mean Corpuscular Hemoglobin 29.7 pg (25.0-34.0); Mean Corpuscular Hgb Conc 32.7 g/dL (32.0-36.0); Mean Corpuscular Volume 90.8 fL (80.0-100.0); Mean Platelet Volume 12.1 fL (9.4-12.4); Monocytes # (auto) 0.94 K/uL (0.11-0.59); Monocytes % (auto) 7.7 %; Neutrophils # (auto) 9.31 K/uL (1.40-6.50); Neutrophils % (auto) 76.8 %; Platelet Count 187 K/uL (130-400); RDW Standard Deviation 46.6 fL (36.4-46.3); Red Blood Count 5.01 M/uL (4.20-5.40); White Blood Count 12.14 K/ul (4.8-10.8)
--- NOTE | 2023-09-19 13:02 | XRay Report ---
SINGLE VIEW CHEST CLINICAL HISTORY: Atypical chest pain FINDINGS: An AP, portable, upright chest radiograph is compared to study dated 09/03/2021. The heart is enlarged noting atherosclerotic calcification of the thoracic aorta. The pulmonary vasculature is no ncongested. Chronic interstitial thickening similar to previous. There is mild bibasilar scarring/ate lectasis. The lungs and pleural spaces are otherwise clear. No pneumothorax is seen. The skeletal str uctures are osteopenic. The bony thorax is grossly intact. A surgical anchor is noted in the right hu meral head. IMPRESSION: Cardiomegaly with no acute cardiopulmonary abnormality identified. ACT 112: Negative or not required by law. Electronically signed by: Yg Benedict M.D. 09/19/2023 1:01 PM
[2023-09-19 13:20] LABS: BUN Creatinine Ratio 15.6 (10-20); Calcium 10.8 mg/dl (8.6-10.3); Creatinine Clr Calc Pharmacy 42.4 ml/min; Est GFR (Non-African American) 59.5 ml/min; Magnesium 2.1 mg/dl (1.7-2.4); Potassium 4.1 mmol/L (3.5-5.1)
[2023-09-19 13:22] LABS: Troponin I High Sensitivity 7.4 pg/ml (0-14)
[2023-09-19 13:26] LABS: INR 0.9 (0.9-1.1); Partial Thromboplastin Ratio 0.9; Partial Thromboplastin Time 26 Seconds (21-31); Prothrombin Time 10.2 Seconds (9.0-12.0)
--- NOTE | 2023-09-19 16:27 | History & Physical Report ---
Date of Service September 19, 2023 Assessment & Plan (1) Non-ST elevation AL (NSTEMI): Plan: Unclear symptoms actually from this as ongoing for hours with only slight troponin rise. Suspected NSTEMI due to troponin increase with no alternative explanation and triage note concerning for ACS. ASA 324mg PO given prior to hospital, continue 81mg PO daily Intolerant to beta-blockers previously Continue atorvastatin 80mg PO HS EKG in AM Trend troponins overnight TTE NPO after midnight for possible cardiac cath tomorrow Consult cardiology (2) Coronary artery disease: Plan: non-obstructive on cath October 2018 (3) PVC (premature ventricular contraction): Plan: Known to have frequent PVCs, often bigeminy, intolerant to BB and diltiazem Monitor for NSVT/VT overnight Plan VTE Prophylaxis - heparin IV Diet - heart healthy, NPO after midnight Disposition - observation to PCU Admission and Anticipated Discharge Date Admission Date: September 19, 2023 History of Present Illness Chief Complaint: Chest pain Primary Care Provider: Dom Dahl DO Eden Hernandez is an 83 year old female who presents to the ER with chest pain. Triage note appears different to the history she current is telling me. Triage reports chest pain in upper epigastric area radiating to lower neck and bilateral shoulder starting last night then woke up with persistent symptoms this morning therefore called 911. Total 324mg PO aspirin given prior to ER. x2 nitroglycerin took pain from 9/10 to 0/10. Her main complaint on admission is bilateral neck pain which is not reproducible but is worse on rotating her head. 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 She felt this is her reflux. The neck pain started last night around 8pm, she is unsure how long it lasted but it was not that severe and she was able to fall asleep. Today she woke up initially without symptoms however while getting dressed her neck pain returned and did not get better with aspirin therefore she called EMS. She reports this is currently 10/10 however when I returned without having received pharmacological intervention this went down to a 5/10 with repositioning alone. She notes this neck pain is better on exertion when she is moving around as she thinks about it less. She has a longstanding history of palpitation related to ventricular bigeminy with intolerance to beta-blockers and diltiazem therefore currently is not on any treatment for this. She underwent cardiac catheterization for atypical chest pain and frequent PVCs in [place] [address] Christian with non -obstructive coronary artery disease at that time. Allergies Allergy/AdvReac Type Severity Reaction Status Date / Time diltiazem AdvReac Intermediate Verified 09/19/23 13:13 metoprolol AdvReac Intermediate Verified 09/19/23 13:13 nebivolol AdvReac Intermediate Verified 09/19/23 13:13 Home Medications Medication Instructions Recorded Confirmed Type multivit with min-folic 1 tab PO QAM 12/12/18 09/19/23 History acid-lutein 400 mcg-250 mcg chewable tablet (Centrum Silver) famotidine 40 mg tablet 40 mg PO HS #90 tabs 11/20/22 09/19/23 Rx atorvastatin 80 mg tablet 80 mg PO HS #90 tabs 03/29/23 09/19/23 Rx Past Med/Surg History Medical History Fracture of distal end of right radius with malunion (~03/03/21) Type 2 diabetes mellitus without complication Atypical chest pain Lesion of left ear Nonobstructive atherosclerosis of coronary artery Arrhythmia FREQUENT PVC'S Kidney stones Osteoarthritis GERD (gastroesophageal reflux disease) Hiatal hernia Stomach pain Nausea Hyperlipidemia Abnormal biliary HIDA scan Cubital tunnel syndrome on left Postmenopausal hormone replacement therapy Surgical History History of ear surgery History of shoulder surgery History of kidney surgery History of esophagogastroduodenoscopy (EGD) History of carpal tunnel release History of cataract surgery BILATERAL History of cardiac cath NO STENTS. 11.12.18 AT [facility] WITH DR. CHRISTIAN HAD PROCEDURE D/T CHEST BURNING AT THAT TIME, EXERCISES REGULARLY. Family History Father Hypertension Stroke Mother Cardiac disorder Sister Stroke Family/Other FHx: uterine cancer Denies family history of Ovarian cancer Prostate cancer Coronary heart disease Myocardial infarction Breast cancer Colorectal cancer Social History Smoking Status: Never smoker Second Hand Exposure: Yes (EX-); Do You Dip or Chew Tobacco: No; Hx Alcohol Use: No Hx Substance Use: No Preferred Language: Slovak Communication Ability: Effective Hearing Ability: Normal Human Resources Project Coordinator Required: No Beliefs That Will Affect Care: None Current Living Situation: Alone current occupational status: retired Other Information That Helps Us Care for You: No Feels Safe at Home: Yes Safety Concerns: Feels Safe At This Time Childhood Exposure to Second-Hand Smoke: No Diet: regular caffeine: Yes Dental Care, Regularly: Yes Physical Activity Frequency: 1-2 Times per Week Seatbelt Use: always Sunscreen Use: Yes Assistive Devices: None Review of Systems Review of Systems: All systems reviewed & are unremarkable except as noted in HPI & below Physical Exam Constitutional: WD/WN, vitals as above Eyes: + anicteric sclerae; normal pupil size ENMT: external ear and nose normal, oropharynx normal Neck: trachea midline, no thyromegaly Respiratory: normal respiratory effort, lungs clear to auscultation Cardiovascular: Rate/Rhythm: regular rate and + irregularly irregular Heart Sounds: no murmur Extremities: normal capillary refill; no calf tenderness and no pedal edema Gastrointestinal (Abdomen): normal bowel sounds, soft, nontender, no hepatosplenomegaly Musculoskeletal: no cyanosis or clubbing, extremities motor strength 5/5 Skin: no rashes, warm and dry Neurologic: moves all extremities and awake; not confused Psychiatric: A+Ox3, euthymic affect Results & Data Results & Data Vital Signs (Past 12 Hours) Vital Signs Temp Pulse Pulse Resp BP BP Pulse Ox 09/19/23 13:25 93 H 16 189/77 H 97 09/19/23 12:18 80 18 100 09/19/23 12:14 98 H 09/19/23 12:11 36.8 C 84 18 181/81 H 99 O2 Del Method 09/19/23 13:25 Room Air 09/19/23 12:18 Room Air 09/19/23 12:14 09/19/23 12:11 Room Air Laboratory Results Abnormal lab results 09/19/23 09/19/23 Range/Units 12:13 14:37 WBC 12.14 H (4.8-10.8) K/ul RDW Std Deviation 46.6 H (36.4-46.3) fL Neut # (Auto) 9.31 H (1.40-6.50) K/uL [place] # (Auto) 0.94 H (0.11-0.59) K/uL Glucose 117 H (70-99(Fasting)) mg/dl Calcium 10.8 H (8.6-10.3) mg/dl Troponin I High Sens 41.2 H D (0-14) pg/ml Diagnostic Findings SINGLE VIEW CHEST CLINICAL HISTORY: Atypical chest pain FINDINGS: An AP, portable, upright chest radiograph is compared to study dated 09/03/2021. The heart is enlarged noting atherosclerotic calcification of the thoracic aorta. The pulmonary vasculature is noncongested. Chronic interstitial thickening similar to previous. There is mild bibasilar scarring/atelectasis. The lungs and pleural spaces are otherwise clear. No pneumothorax is seen. The skeletal structures are osteopenic. The bony thorax is grossly intact. A surgical anchor is noted in the right humeral head. IMPRESSION: Cardiomegaly with no acute cardiopulmonary abnormality identified. Medications Administered ER Medications Given: None ECG Rate (beats per minute): 101 Rhythm: sinus tachycardia Findings: + PVC and + left axis deviation Change: the following changes noted (frequent PVCs replaced bigeminy) Code Status & VTE Plan Code Status Full VTE Prophylaxis Plan VTE Prophylaxis will be ordered: Yes PG Care Time/CCT Total # of Minutes Spent Total Time Spent with Patient: Total time spent is greater than 50% in coordination of care (as documented) at patient's floor/unit and/or counseling patient: Coding Level of Care Code 73491 INT INP/OBS CARE 3/75MIN Diagnoses Non-ST elevation AL (NSTEMI) I21.4 Coronary artery disease I25.10 PVC (premature ventricular contraction) I49.3
--- NOTE | 2023-09-19 16:48 | Electrocardiogram Report ---
Test Reason : Blood Pressure : / mmHG Vent. Rate : 101 BPM Atrial Rate : 101 BPM P-R Int : 162 ms QRS Dur : 090 ms QT Int : 318 ms P-R-T Axes : 049 -42 069 degrees QTc Int : 412 ms Sinus tachycardia with frequent , and consecutive Premature ventricular complexes Possible Left atrial enlargement Left axis deviation Left ventricular hypertrophy with repolarization abnormality Abnormal ECG When compared with ECG of 07-FEB-2023 20:38, ST no longer depressed in Inferior leads ST now depressed in Lateral leads Confirmed by Gerhard Christian ([id number]) on 09/19/2023 4:48:36 PM Referred By: Confirmed By:Clinton Christian
--- NOTE | 2023-09-19 18:14 | Emergency Department Note ---
History of Present Illness General Chief Complaint: Chest Pain Stated Complaint: CHEST PAIN Time Seen by Provider: 09/19/23 12:14 History of Present Illness Provider Complaint: chest pain Onset (ago): day(s) 2 Duration: now resolved Onset: during rest Pain Location: substernal Pain Radiation: neck Maximum Pain Intensity: 9 Current Pain Intensity: 0 Quality: + aching, + heaviness and + dull Relieved By: + nitroglycerin (Pain was 9 out of 10 and then after receiving 2 doses of nitroglycerin from EMS her pain is now 0 out of 10.) Exacerbated By: + nothing Context: no recent illness, no recent surgery, no recent immobilization, no recent travel, no trauma/injury, no new medications or no history of DVT/PE Associated symptoms: + dyspnea; no nausea, no vomiting, no diaphoresis, no syncope, no palpitations, no fever, no cough or no leg swelling Treatments prior to arrival: aspirin and nitroglycerin Home Medications Medication Instructions Recorded Confirmed Type multivit with min-folic 1 tab PO QAM 12/12/18 09/19/23 History acid-lutein 400 mcg-250 mcg chewable tablet (Centrum Silver) famotidine 40 mg tablet 40 mg PO HS #90 tabs 11/20/22 09/19/23 Rx atorvastatin 80 mg tablet 80 mg PO HS #90 tabs 03/29/23 09/19/23 Rx Allergies Allergy/AdvReac Type Severity Reaction Status Date / Time diltiazem AdvReac Intermediate Verified 09/19/23 13:13 metoprolol AdvReac Intermediate Verified 09/19/23 13:13 nebivolol AdvReac Intermediate Verified 09/19/23 13:13 Past Med/Surg History Medical History Fracture of distal end of right radius with malunion (~03/03/21) Type 2 diabetes mellitus without complication Atypical chest pain Lesion of left ear Nonobstructive atherosclerosis of coronary artery Arrhythmia FREQUENT PVC'S Kidney stones Osteoarthritis GERD (gastroesophageal reflux disease) Hiatal hernia Stomach pain Nausea Hyperlipidemia Abnormal biliary HIDA scan Cubital tunnel syndrome on left Postmenopausal hormone replacement therapy Surgical History History of ear surgery History of shoulder surgery History of kidney surgery History of esophagogastroduodenoscopy (EGD) History of carpal tunnel release History of cataract surgery BILATERAL History of cardiac cath NO STENTS. 6.12.19 AT [facility] WITH DR. RIVERA HAD PROCEDURE D/T CHEST BURNING AT THAT TIME, EXERCISES REGULARLY. Family History Father Hypertension Stroke Mother Cardiac disorder Sister Stroke Family/Other FHx: uterine cancer Denies family history of Ovarian cancer Prostate cancer Coronary heart disease Myocardial infarction Breast cancer Colorectal cancer Social History Smoking Status: Never smoker Second Hand Exposure: Yes (EX-); Do You Dip or Chew Tobacco: No; Hx Alcohol Use: No Hx Substance Use: No Preferred Language: Lao Communication Ability: Effective Hearing Ability: Normal Orchestra Leader Required: No Beliefs That Will Affect Care: None Current Living Situation: Alone current occupational status: retired Feels Safe at Home: Yes Childhood Exposure to Second-Hand Smoke: No Diet: regular caffeine: Yes Dental Care, Regularly: Yes Physical Activity Frequency: 1-2 Times per Week Seatbelt Use: always Sunscreen Use: Yes Assistive Devices: Glasses Physical Exam Vital Signs Vital Signs - 24 hr 09/19/23 12:11 09/19/23 12:14 09/19/23 12:14 Temperature 36.8 C Temperature Source Oral Pulse Rate 84 98 H 93 H Pulse Rate [Apical] Pulse Rate from SpO2 Sensor 85 Pulse Rhythm Pulse Rhythm [Apical] Pulse Strength [Apical] Respiratory Rate 18 Respiratory Effort / Characteristics Non-Labored Spontaneous Respiratory Depth Normal Respiratory Pattern Blood Pressure 181/81 H Blood Pressure [Right Arm] Blood Pressure Mean 114 Blood Pressure Mean [Right Arm] Blood Pressure Position Sitting Pulse Oximetry 99 100 Oxygen Delivery Method Room Air Sepsis Recent Fever Within 48 Hours No Sepsis New/Unexplained Change in Mental Status No Sepsis Action Taken by Nursing No Action Required 09/19/23 12:14 09/19/23 12:18 09/19/23 12:20 Temperature Temperature Source Pulse Rate 80 89 Pulse Rate [Apical] Pulse Rate from SpO2 Sensor 87 Pulse Rhythm Regular Pulse Rhythm [Apical] Pulse Strength [Apical] Respiratory Rate 18 22 Respiratory Effort / Characteristics Respiratory Depth Respiratory Pattern Blood Pressure 181/81 H Blood Pressure [Right Arm] Blood Pressure Mean 124 Blood Pressure Mean [Right Arm] Blood Pressure Position Pulse Oximetry 100 99 Oxygen Delivery Method Room Air Sepsis Recent Fever Within 48 Hours Sepsis New/Unexplained Change in Mental Status Sepsis Action Taken by Nursing 09/19/23 12:30 09/19/23 12:40 09/19/23 12:50 Temperature Temperature Source Pulse Rate 79 86 89 Pulse Rate [Apical] Pulse Rate from SpO2 Sensor 79 88 89 Pulse Rhythm Pulse Rhythm [Apical] Pulse Strength [Apical] Respiratory Rate 24 21 22 Respiratory Effort / Characteristics Respiratory Depth Respiratory Pattern Blood Pressure Blood Pressure [Right Arm] Blood Pressure Mean Blood Pressure Mean [Right Arm] Blood Pressure Position Pulse Oximetry 96 98 99 Oxygen Delivery Method Sepsis Recent Fever Within 48 Hours Sepsis New/Unexplained Change in Mental Status Sepsis Action Taken by Nursing 09/19/23 13:02 09/19/23 13:10 09/19/23 13:20 Temperature Temperature Source Pulse Rate 94 H 81 94 H Pulse Rate [Apical] Pulse Rate from SpO2 Sensor 96 H 83 101 H Pulse Rhythm Pulse Rhythm [Apical] Pulse Strength [Apical] Respiratory Rate 22 24 Respiratory Effort / Characteristics Respiratory Depth Respiratory Pattern Blood Pressure Blood Pressure [Right Arm] Blood Pressure Mean Blood Pressure Mean [Right Arm] Blood Pressure Position Pulse Oximetry 98 99 94 Oxygen Delivery Method Sepsis Recent Fever Within 48 Hours Sepsis New/Unexplained Change in Mental Status Sepsis Action Taken by Nursing 09/19/23 13:25 09/19/23 13:26 09/19/23 13:26 Temperature Temperature Source Pulse Rate 88 Pulse Rate [Apical] 93 H Pulse Rate from SpO2 Sensor 45 L Pulse Rhythm Pulse Rhythm [Apical] Irregular Pulse Strength [Apical] Normal Respiratory Rate 16 22 Respiratory Effort / Characteristics Non-Labored Spontaneous Respiratory Depth Normal Respiratory Pattern Regular Blood Pressure 189/77 H Blood Pressure [Right Arm] 189/77 H Blood Pressure Mean 104 Blood Pressure Mean [Right Arm] 114 Blood Pressure Position Pulse Oximetry 97 98 Oxygen Delivery Method Room Air Sepsis Recent Fever Within 48 Hours Sepsis New/Unexplained Change in Mental Status Sepsis Action Taken by Nursing 09/19/23 13:30 09/19/23 13:31 09/19/23 13:31 Temperature Temperature Source Pulse Rate 89 89 Pulse Rate [Apical] Pulse Rate from SpO2 Sensor 62 44 L Pulse Rhythm Pulse Rhythm [Apical] Pulse Strength [Apical] Respiratory Rate Respiratory Effort / Characteristics Respiratory Depth Respiratory Pattern Blood Pressure 190/79 H Blood Pressure [Right Arm] Blood Pressure Mean 159 Blood Pressure Mean [Right Arm] Blood Pressure Position Pulse Oximetry 98 98 Oxygen Delivery Method Sepsis Recent Fever Within 48 Hours Sepsis New/Unexplained Change in Mental Status Sepsis Action Taken by Nursing 09/19/23 13:40 09/19/23 13:50 09/19/23 14:00 Temperature Temperature Source Pulse Rate 89 85 85 Pulse Rate [Apical] Pulse Rate from SpO2 Sensor 87 86 90 Pulse Rhythm Pulse Rhythm [Apical] Pulse Strength [Apical] Respiratory Rate 19 Respiratory Effort / Characteristics Respiratory Depth Respiratory Pattern Blood Pressure Blood Pressure [Right Arm] Blood Pressure Mean Blood Pressure Mean [Right Arm] Blood Pressure Position Pulse Oximetry 98 99 99 Oxygen Delivery Method Sepsis Recent Fever Within 48 Hours Sepsis New/Unexplained Change in Mental Status Sepsis Action Taken by Nursing 09/19/23 14:01 09/19/23 14:01 09/19/23 14:10 Temperature Temperature Source Pulse Rate 90 94 H Pulse Rate [Apical] Pulse Rate from SpO2 Sensor 45 L 93 H Pulse Rhythm Pulse Rhythm [Apical] Pulse Strength [Apical] Respiratory Rate 24 Respiratory Effort / Characteristics Respiratory Depth Respiratory Pattern Blood Pressure 179/109 H Blood Pressure [Right Arm] Blood Pressure Mean 121 Blood Pressure Mean [Right Arm] Blood Pressure Position Pulse Oximetry 99 98 Oxygen Delivery Method Sepsis Recent Fever Within 48 Hours Sepsis New/Unexplained Change in Mental Status Sepsis Action Taken by Nursing 09/19/23 14:20 09/19/23 14:30 09/19/23 14:30 Temperature Temperature Source Pulse Rate 95 H 81 Pulse Rate [Apical] Pulse Rate from SpO2 Sensor 93 H 40 L Pulse Rhythm Pulse Rhythm [Apical] Pulse Strength [Apical] Respiratory Rate Respiratory Effort / Characteristics Respiratory Depth Respiratory Pattern Blood Pressure 190/78 H Blood Pressure [Right Arm] Blood Pressure Mean 121 Blood Pressure Mean [Right Arm] Blood Pressure Position Pulse Oximetry 95 99 Oxygen Delivery Method Sepsis Recent Fever Within 48 Hours Sepsis New/Unexplained Change in Mental Status Sepsis Action Taken by Nursing 09/19/23 14:40 09/19/23 14:50 09/19/23 15:00 Temperature Temperature Source Pulse Rate 80 80 78 Pulse Rate [Apical] Pulse Rate from SpO2 Sensor 40 L 40 L 39 L Pulse Rhythm Pulse Rhythm [Apical] Pulse Strength [Apical] Respiratory Rate 21 23 Respiratory Effort / Characteristics Respiratory Depth Respiratory Pattern Blood Pressure Blood Pressure [Right Arm] Blood Pressure Mean Blood Pressure Mean [Right Arm] Blood Pressure Position Pulse Oximetry 99 98 98 Oxygen Delivery Method Sepsis Recent Fever Within 48 Hours Sepsis New/Unexplained Change in Mental Status Sepsis Action Taken by Nursing 09/19/23 15:01 09/19/23 15:01 09/19/23 15:10 Temperature Temperature Source Pulse Rate 82 82 Pulse Rate [Apical] Pulse Rate from SpO2 Sensor 42 L 70 Pulse Rhythm Pulse Rhythm [Apical] Pulse Strength [Apical] Respiratory Rate Respiratory Effort / Characteristics Respiratory Depth Respiratory Pattern Blood Pressure 178/65 H Blood Pressure [Right Arm] Blood Pressure Mean 77 Blood Pressure Mean [Right Arm] Blood Pressure Position Pulse Oximetry 98 98 Oxygen Delivery Method Sepsis Recent Fever Within 48 Hours Sepsis New/Unexplained Change in Mental Status Sepsis Action Taken by Nursing 09/19/23 15:20 09/19/23 15:30 09/19/23 15:31 Temperature Temperature Source Pulse Rate 82 84 Pulse Rate [Apical] Pulse Rate from SpO2 Sensor 42 L 42 L Pulse Rhythm Pulse Rhythm [Apical] Pulse Strength [Apical] Respiratory Rate Respiratory Effort / Characteristics Respiratory Depth Respiratory Pattern Blood Pressure 188/63 H Blood Pressure [Right Arm] Blood Pressure Mean 97 Blood Pressure Mean [Right Arm] Blood Pressure Position Pulse Oximetry 96 98 Oxygen Delivery Method Sepsis Recent Fever Within 48 Hours Sepsis New/Unexplained Change in Mental Status Sepsis Action Taken by Nursing 09/19/23 15:31 09/19/23 15:31 09/19/23 15:40 Temperature Temperature Source Pulse Rate 82 86 Pulse Rate [Apical] Pulse Rate from SpO2 Sensor 41 L 43 L Pulse Rhythm Pulse Rhythm [Apical] Pulse Strength [Apical] Respiratory Rate 24 Respiratory Effort / Characteristics Respiratory Depth Respiratory Pattern Blood Pressure 188/63 H Blood Pressure [Right Arm] Blood Pressure Mean 97 Blood Pressure Mean [Right Arm] Blood Pressure Position Pulse Oximetry 97 97 Oxygen Delivery Method Sepsis Recent Fever Within 48 Hours Sepsis New/Unexplained Change in Mental Status Sepsis Action Taken by Nursing 09/19/23 15:50 09/19/23 16:00 09/19/23 16:02 Temperature Temperature Source Pulse Rate 97 H 81 84 Pulse Rate [Apical] Pulse Rate from SpO2 Sensor 100 H 89 78 Pulse Rhythm Pulse Rhythm [Apical] Pulse Strength [Apical] Respiratory Rate 21 19 24 Respiratory Effort / Characteristics Respiratory Depth Respiratory Pattern Blood Pressure Blood Pressure [Right Arm] Blood Pressure Mean Blood Pressure Mean [Right Arm] Blood Pressure Position Pulse Oximetry 98 98 94 Oxygen Delivery Method Sepsis Recent Fever Within 48 Hours Sepsis New/Unexplained Change in Mental Status Sepsis Action Taken by Nursing 09/19/23 16:02 09/19/23 16:10 Temperature Temperature Source Pulse Rate 82 Pulse Rate [Apical] Pulse Rate from SpO2 Sensor 90 Pulse Rhythm Pulse Rhythm [Apical] Pulse Strength [Apical] Respiratory Rate 22 Respiratory Effort / Characteristics Respiratory Depth Respiratory Pattern Blood Pressure 169/70 H Blood Pressure [Right Arm] Blood Pressure Mean 85 Blood Pressure Mean [Right Arm] Blood Pressure Position Pulse Oximetry 93 Oxygen Delivery Method Sepsis Recent Fever Within 48 Hours Sepsis New/Unexplained Change in Mental Status Sepsis Action Taken by Nursing Physical Exam GENERAL: oriented to person, place, and time. appears well-developed and well- nourished. HENT: Exam performed. - Head: Normocephalic and atraumatic. EYES: Conjunctivae and EOM are normal. Right eye exhibits no discharge. Left eye exhibits no discharge. No scleral icterus. NECK: Normal range of motion. Neck supple. No JVD present. CV: Normal rate, regular rhythm, normal heart sounds and intact distal pulses. There is no peripheral edema. Palpable radial pulses bue. PULM/CHEST: Effort normal and breath sounds normal. No respiratory distress. No stridor. no wheezes. no rales. ABD: The abdomen is soft. There is no tenderness. NEURO: Motor and sensation grossly intact. SKIN: Skin is warm and dry. He is not diaphoretic. PSYCH: normal mood and affect. Behavior is normal. Judgment and thought content normal. Course Course 1214: The patient was evaluated in room B7. A complete history and physical exam was performed Cardiac monitoring: An order was placed for continuous cardiac monitoring. The monitor shows a rate of 100 with sinus rhythm interpreted by ak 1430: Vital signs stable. Labs and imaging within normal limits. Patient has many risk factors for heart disease and given that her pain got better with nitroglycerin, patient was suggested to be admitted to the hospital for rule out ACS. Patient was very hesitant to do this. We compromised and decided we will get a delta troponin, if negative patient will be discharged and follow-up with cardiology outpatient, if positive patient will be admitted for further workup for ACS. Patient is in agreement with this plan. 1551: Vital signs stable. Delta troponin his almost increased by 6 times up to 41.2. Discussed the case with Dr. Holley on-call [facility] cardiology. He agrees the patient should be admitted. He recommends no heparin at this time. [facility] hospitalist will be made aware of the patient. Medical Decision Making Laboratory Data Attestation: I reviewed the patient's lab results. 09/19/23 12:13 09/19/23 12:13 Labs: Lab Results 09/19/23 09/19/23 09/19/23 Range/Units 12:13 14:37 17:28 WBC 12.14 H (4.8-10.8) K/ul RBC 5.01 (4.20-5.40) M/uL Hgb 14.9 (12.0-16.0) g/dl Hct 45.5 (37.0-47.0) % MCV 90.8 (80.0-100.0) fL MCH 29.7 (25.0-34.0) pg MCHC 32.7 (32.0-36.0) g/dL RDW Std Deviation 46.6 H (36.4-46.3) fL RDW Coeff of Salazar 14.0 (11.5-14.5) % Plt Count 187 (130-400) K/uL MPV 12.1 (9.4-12.4) fL Immature Gran % (Auto) 0.5 % Neut % (Auto) 76.8 % Lymph % (Auto) 14.7 % Charles % (Auto) 7.7 % Eos % (Auto) 0.1 % Baso % (Auto) 0.2 % Neut # (Auto) 9.31 H (1.40-6.50) K/uL Lymph # (Auto) 1.79 (1.20-3.40) K/uL Charles # (Auto) 0.94 H (0.11-0.59) K/uL Eos # (Auto) 0.01 (0.00-0.50) K/uL Baso # (Auto) 0.03 (0.00-0.20) K/uL Immature Gran # (Auto) 0.06 (0.01-0.20) K/uL PT 10.2 (9.0-12.0) Seconds INR 0.9 (0.9-1.1) APTT 26 (21-31) Seconds PTT Ratio 0.9 Sodium 138 (136-145) mmol/L Potassium 4.1 (3.5-5.1) mmol/L Chloride 102 (98-107) mmol/L Carbon Dioxide 26 (21-32) mmol/L Anion Gap 10 (3-11) BUN 14 (6-23) mg/dl Creatinine 0.90 (0.6-1.2) mg/dl Est Cr Clr Drug Dosing 42.4 ml/min Est GFR ( Amer) 69.0 ml/min Est GFR (Non-Af Amer) 59.5 ml/min BUN/Creatinine Ratio 15.6 (10-20) Glucose 117 H (70-99(Fasting)) mg/dl Calcium 10.8 H (8.6-10.3) mg/dl Magnesium 2.1 (1.7-2.4) mg/dl Troponin I High Sens 7.4 41.2 H D 122.7 H* D (0-14) pg/ml Lipase 43 (11-82) U/L Imaging Data Chest x-ray: Attestation: I personally reviewed and interpreted this imaging study as follows: My impression: Chest x-ray negative. Airway clear. No pneumothorax. No consolidation. No cardiomegaly or cephalization.. No free air under the diaphragm. No fractures of the skeletal structures. Radiologist's impression: Chest X-Ray 09/19/23 12:36 SINGLE VIEW CHEST CLINICAL HISTORY: Atypical chest pain FINDINGS: An AP, portable, upright chest radiograph is compared to study dated 09/03/2021. The heart is enlarged noting atherosclerotic calcification of the thoracic aorta. The pulmonary vasculature is noncongested. Chronic interstitial thickening similar to previous. There is mild bibasilar scarring/atelectasis. The lungs and pleural spaces are otherwise clear. No pneumothorax is seen. The skeletal structures are osteopenic. The bony thorax is grossly intact. A surgical anchor is noted in the right humeral head. IMPRESSION: Cardiomegaly with no acute cardiopulmonary abnormality identified. ACT 112: Negative or not required by law. Electronically signed by: Yg Benedict M.D. 09/19/2023 1:01 PM ECG Data Attestation: I personally reviewed and interpreted this ECG as follows: Indication: chest pain Rate (beats per minute): 101 Rhythm: sinus tachycardia Findings: + PVC; no ST depression, no ST elevation or no prolonged QT MDM Narrative 1214: The patient was evaluated in room B7. A complete history and physical exam was performed Cardiac monitoring: An order was placed for continuous cardiac monitoring. The monitor shows a rate of 100 with sinus rhythm interpreted by me 1430: Vital signs stable. Labs and imaging within normal limits. Patient has many risk factors for heart disease and given that her pain got better with nitroglycerin, patient was suggested to be admitted to the hospital for rule out ACS. Patient was very hesitant to do this. We compromised and decided we will get a delta troponin, if negative patient will be discharged and follow-up with cardiology outpatient, if positive patient will be admitted for further workup for ACS. Patient is in agreement with this plan. 1551: Vital signs stable. Delta troponin his almost increased by 6 times up to 41.2. Discussed the case with Dr. Holley on-call [facility] cardiology. He agrees the patient should be admitted. He recommends no heparin at this time. [facility] hospitalist will be made aware of the patient. Impression & Plan Non-ST elevation [place] (NSTEMI) Discharge Plan Visit Data Chief Complaint: Chest Pain Stated Complaint: CHEST PAIN ED Provider: Rommel Dhaliwal Discharge Problem: Non-ST elevation [place] (NSTEMI) Patient Disposition: Admitted As Inpatient Forms Stand Alone Forms: My [facility] Prescriptions Prescriptions: No Action famotidine 40 mg tablet 40 mg PO HS Qty: 90 3RF Rx Instructions: TAKE 1 TABLET BY MOUTH AT BEDTIME atorvastatin 80 mg tablet 80 mg PO HS Qty: 90 3RF Centrum Silver 400-250 mcg Tablet,Chewable 1 tab PO QAM Referrals Referrals: Dom Dahl DO [Primary Care Provider] -
[2023-09-19] MEDS: NITROGLYCERIN 2% OINTMENT 30GM TUBE EXT SCH (18:27)
[2023-09-19] MEDS: HEPARIN SOD (PORCINE) 1000 UNIT/ML IV ONE (19:15)
[2023-09-19] MEDS: HEPARIN SODIUM/DEXTROSE 25,000 UNITS/500 ML BAG IV SCH (19:16)
[2023-09-19] MEDS ORDERED: NITROGLYCERIN SL 0.4 MG/TAB TAB SL PRN (20:37)
[2023-09-19] MEDS ORDERED: ACETAMINOPHEN 325 MG TAB PO PRN (20:37)
[2023-09-19] MEDS: Heparin IV Adult Wt-Based Low-Dose w/ INITIAL Bolus Protocol IV STA (21:13)
[2023-09-19] MEDS: FAMOTIDINE 40 MG TABLET PO SCH (22:41)
[2023-09-19] MEDS: ATORVASTATIN 40 MG TAB PO SCH (22:41)
[2023-09-20 01:54] LABS: ANTI-Xa, UFH(UnfractionatedHep 0.58 IU/ml (0.3-0.7)
[2023-09-20 07:09] LABS: Basophils # (auto) 0.02 K/uL (0.00-0.20); Basophils % (auto) 0.3 %; Eosinophils # (auto) 0.01 K/uL (0.00-0.50); Eosinophils % (auto) 0.2 %; Hematocrit (blood only) 38.2 % (37.0-47.0); Hemoglobin 12.6 g/dl (12.0-16.0); Immature Granulocytes # (auto) 0.01 K/uL (0.01-0.20); Immature Granulocytes % (auto) 0.2 %; Lymphocytes # (auto) 1.69 K/uL (1.20-3.40); Lymphocytes % (auto) 26.1 %; Mean Corpuscular Hemoglobin 29.9 pg (25.0-34.0); Mean Corpuscular Volume 90.5 fL (80.0-100.0); Mean Platelet Volume 11.4 fL (9.4-12.4); Monocytes # (auto) 0.76 K/uL (0.11-0.59); Monocytes % (auto) 11.7 %; Neutrophils # (auto) 3.99 K/uL (1.40-6.50); Neutrophils % (auto) 61.5 %; Platelet Count 160 K/uL (130-400); RDW Coefficient of Variation 13.8 % (11.5-14.5); RDW Standard Deviation 45.5 fL (36.4-46.3); Red Blood Count 4.22 M/uL (4.20-5.40); White Blood Count 6.48 K/ul (4.8-10.8)
[2023-09-20 07:27] LABS: BUN Creatinine Ratio 17.7 (10-20); C Reactive Protein 1.75 mg/dl (0-0.5); Calcium 9.4 mg/dl (8.6-10.3); Creatinine Clr Calc Pharmacy 48.1 ml/min; Est GFR (African American) 80.8 ml/min; Est GFR (Non-African American) 69.7 ml/min; Potassium 4.1 mmol/L (3.5-5.1)
[2023-09-20 07:32] LABS: ANTI-Xa, UFH(UnfractionatedHep 0.47 IU/ml (0.3-0.7)
[2023-09-20 07:34] LABS: Estimated Average Glucose 137 mg/dl; Hemoglobin A1C 6.4 % (4.5-5.6)
[2023-09-20 07:36] LABS: Troponin I High Sensitivity 71.9 pg/ml (0-14)
[2023-09-20] MEDS: CEROVITE ADV FORMULA TAB PO SCH (09:16)
[2023-09-20] MEDS: ASPIRIN 81 MG ECTAB PO SCH (09:16)
--- NOTE | 2023-09-20 13:47 | XCELERA ---
[id number]
--- NOTE | 2023-09-20 14:30 | Cardiology Consultation ---
Date of Consultation September 20, 2023 Assessment & Plan (1) Elevated troponin: (2) Coronary artery disease: (3) PVC (premature ventricular contraction): (4) Chest pain: (5) Valvular heart disease: Plan 1. Chest pain: The patient has an element of chronic chest discomfort. She did not report any change in her typical chest discomfort yesterday. This waxes and wanes in severity but according the patient nearly always there. The symptoms for which she wanted evaluated involve primarily neck and trapezius discomfort. She reports as being fairly severe and present well past the time she was evaluated in the hospital. Very unclear if this responded to nitroglycerin. S he is known to have an element of coronary disease and is certainly the demographic where an acute coronary syndrome is possible. However, at the time she arrived to the hospital her cardiac biomarkers were normal. There were not abnormal until at least 8 hours after her discomfort started making the presenting symptom unlikely to be cardiac ischemia. 2. Elevated troponin: She does have elevated cardiac biomarkers. I doubt this represents an acute coronary syndrome again based on the time frame of her symptoms and biomarker elevation. Think it is possible that her elevated blood pressure in the setting of known coronary disease produced some elevated troponin. Currently symptom free. I think we can stop her heparin and have her ambulate. I think she still feels well she can probably be discharged without additional cardiac evaluation. 3. Coronary disease: Known to have significant disease in the mid LAD. This was evaluated several years ago. She does describe some symptoms associated with exertion. It is possible she has an element of exertional angina. However, she is not seem to be very bothered by any exertional symptoms and has been able to maintain her usual level of activity recently without any change. She has not tolerated more aggressive medical therapy in the past. At this point she is simply being continued on her atorvastatin. We can recommend celina ng an anti-platelet agent. 4. Valvular heart disease: She has an element of aortic and mitral regurgitation. Neither which is severe. 5. 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 Normal LV systolic function on her echocardiogram performed today. While she does have some sensation of palpitation she has not done well with medical therapy in the past. Again, does not appear to be very bothersome to her or limit her activity. I do not think this requires any specific treatment currently. History of Present Illness Reason for Consultation: Chest pain, elevated troponin Requesting Physician: Yoli Attending Physician: Casey Suárez History of Present Illness The patient is an 83-year-old woman with a history of nonobstructive coronary disease, frequent PVCs and chronic chest discomfort who presented to the hospital primarily for evaluation neck and shoulder pain. The patient reported waking up yesterday morning with neck and shoulder discomfort. Apparently this was fairly severe in nature and persistent. Initially it was not associated with other symptoms but eventually she described shaking and some diaphoresis. She tried changing positions and starting her day, but eventually decided to proceed to the emergency room for evaluation. She is noted to be markedly hypertensive at the time of admission. By report nitroglycerin improved her sym ptoms, but the patient cannot recall any particular medication improving her symptoms. She feels that her discomfort gradually improved throughout the course of the remaining day. She cannot recall similar symptoms in the past. She does have a sense of chronic chest discomfort. However, she describes this is a very discrete discomfort that waxes and wanes in severity. She reports of being there every day. She did not describe any change in her chest pain recently. She maintains a reasonable level of activity. She did not report exertional symptoms. She has not had symptoms recently of dizziness or lightheadedness. She has not noticed any lower extremity edema. Allergies Allergy/AdvReac Type Severity Reaction Status Date / Time diltiazem AdvReac Intermediate Verified 09/19/23 13:13 metoprolol AdvReac Intermediate Verified 09/19/23 13:13 nebivolol AdvReac Intermediate Verified 09/19/23 13:13 Home Medications Medication Instructions Recorded Confirmed Type multivit with min-folic 1 tab PO QAM 12/12/18 09/19/23 History acid-lutein 400 mcg-250 mcg chewable tablet (Centrum Silver) famotidine 40 mg tablet 40 mg PO HS #90 tabs 11/20/22 09/19/23 Rx atorvastatin 80 mg tablet 80 mg PO HS #90 tabs 03/29/23 09/19/23 Rx Patient History Medical History (Updated 09/20/23 @ 14:27 by Gerhard Rivera MD) Fracture of distal end of right radius with malunion (~03/03/21) 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 --> labs indicative of pre-diabetes Atypical chest pain Lesion of left ear Nonobstructive atherosclerosis of coronary artery Arrhythmia FREQUENT PVC'S Kidney stones Osteoarthritis GERD (gastroesophageal reflux disease) Hiatal hernia Stomach pain Nausea Hyperlipidemia Abnormal biliary HIDA scan Cubital tunnel syndrome on left Postmenopausal hormone replacement therapy Surgical History History of ear surgery History of shoulder surgery History of kidney surgery History of esophagogastroduodenoscopy (EGD) History of carpal tunnel release History of cataract surgery BILATERAL History of cardiac cath NO STENTS. 11.12.18 AT [facility] WITH DR. RIVERA HAD PROCEDURE D/T CHEST BURNING AT THAT TIME, EXERCISES REGULARLY. Family History Father Hypertension Stroke Mother Cardiac disorder Sister Stroke Family/Other FHx: uterine cancer Denies family history of Ovarian cancer Prostate cancer Coronary heart disease Myocardial infarction Breast cancer Colorectal cancer Social History Smoking Status: Never smoker Second Hand Exposure: Yes (EX-); Do You Dip or Chew Tobacco: No; Hx Alcohol Use: No Hx Substance Use: No Preferred Language: Macanese Communication Ability: Effective Hearing Ability: Normal Director Security Risk Management Required: No Beliefs That Will Affect Care: None Current Living Situation: Alone current occupational status: retired Other Information That Helps Us Care for You: No Feels Safe at Home: Yes Safety Concerns: Feels Safe At This Time Childhood Exposure to Second-Hand Smoke: No Diet: regular caffeine: Yes Dental Care, Regularly: Yes Physical Activity Frequency: 1-2 Times per Week Seatbelt Use: always Sunscreen Use: Yes Assistive Devices: None Review of Systems 2 Review of Systems: Per HPI. No current symptoms. Physical Exam Physical Exam: She is alert and oriented x3. Mood affect appear normal. She answered all questions appropriately. HEENT: Sclerae are anicteric. Pupils are equal and reactive to light and accommodation. Extraocular movements were intact. Neuro: Cranial nerves intact Neck: Palpation of the neck and trapezius area did not elicit pain. Lungs: Lungs are clear to auscultation bilaterally. There are no rales wheezes or rhonchi. She has normal respiratory effort without use of accessory muscles. There is normal pulmonary excursion. Cardiac: The rhythm was regular. S1 and S2 were normal. There are no murmurs on examination. The PMI was not markedly displaced on palpation. Extremities: Patient has bilateral radial pulses that are equal in intensity. There is no evidence cyanosis or clubbing. There was no evidence of significant peripheral edema bilaterally. Skin: There are no rashes noted on examination today. Results & Data Vital Signs (Past 12 Hours) Vital Signs Temp Pulse Pulse Resp BP BP Pulse Ox 09/20/23 11:00 36.6 C 69 18 132/72 93 09/20/23 07:54 36.5 C 96 H 18 113/64 95 09/20/23 07:00 80 09/20/23 03:01 36.9 C 52 L 16 114/63 95 O2 Del Method 09/20/23 11:00 Room Air 09/20/23 07:54 Room Air 09/20/23 07:00 09/20/23 03:01 Room Air Laboratory Results Abnormal Lab Results 09/19/23 09/19/23 09/20/23 14:37 17:28 00:59 WBC RBC Hgb Hct MCV MCH MCHC RDW Std Deviation RDW Coeff of Salazar Plt Count MPV Immature Gran % (Auto) Neut % (Auto) Lymph % (Auto) [facility] % (Auto) Eos % (Auto) Baso % (Auto) Neut # (Auto) Lymph # (Auto) [facility] # (Auto) Eos # (Auto) Baso # (Auto) Immature Gran # (Auto) ESR Heparin Anti-Xa, Unfract 0.58 Sodium Potassium Chloride Carbon Dioxide Anion Gap BUN Creatinine Est Cr Clr Drug Dosing Est GFR ( Amer) Est GFR (Non-Af Amer) BUN/Creatinine Ratio Glucose Estimat Average Glucose Hemoglobin A1c Calcium Troponin I High Sens 41.2 H D 122.7 H* D 144.6 H* C-Reactive Protein Triglycerides Cholesterol LDL Cholesterol, Calc VLDL Cholesterol, Calc HDL Cholesterol Cholesterol/HDL Ratio 09/20/23 06:51 WBC 6.48 RBC 4.22 Hgb 12.6 Hct 38.2 MCV 90.5 MCH 29.9 MCHC 33.0 RDW Std Deviation 45.5 RDW Coeff of Salazar 13.8 Plt Count 160 MPV 11.4 Immature Gran % (Auto) 0.2 Neut % (Auto) 61.5 Lymph % (Auto) 26.1 [facility] % (Auto) 11.7 Eos % (Auto) 0.2 Baso % (Auto) 0.3 Neut # (Auto) 3.99 Lymph # (Auto) 1.69 [facility] # (Auto) 0.76 H Eos # (Auto) 0.01 Baso # (Auto) 0.02 Immature Gran # (Auto) 0.01 ESR 26 Heparin Anti-Xa, Unfract 0.47 Sodium 140 Potassium 4.1 Chloride 107 Carbon Dioxide 26 Anion Gap 7 BUN 14 Creatinine 0.79 Est Cr Clr Drug Dosing 48.1 Est GFR ( Amer) 80.8 Est GFR (Non-Af Amer) 69.7 BUN/Creatinine Ratio 17.7 Glucose 113 H Estimat Average Glucose 137 Hemoglobin A1c 6.4 H Calcium 9.4 Troponin I High Sens 71.9 H* D C-Reactive Protein 1.75 H Triglycerides 60 Cholesterol 164 LDL Cholesterol, Calc 68 VLDL Cholesterol, Calc 12 HDL Cholesterol 84 Cholesterol/HDL Ratio 2.0 Diagnostic Findings Chest x-ray performed at the time of admission did not reveal any acute cardiopulmonary process 09/20/2023: Normal LV systolic function. Inferior basal hypokinesis. Moderately dilated left atrium. Mild to moderate aortic regurgitation. Moderate mitral regurgitation. ECG Additional Comments: EKG demonstrated normal sinus rhythm with frequent PVCs. PG Care Time/CCT Total # of Minutes Spent Total Time Spent with Patient: Total time spent is greater than 50% in coordination of care (as documented) at patient's floor/unit and/or counseling patient: Coding Level of Care Code 75815 INT INP/OBS CARE 3/75MIN Diagnoses Elevated troponin R79.89 Coronary artery disease I25.10 PVC (premature ventricular contraction) I49.3 Chest pain R07.9 Chest pain type: unspecified Valvular heart disease I38 (4) Chest pain Chest pain type: unspecified Qualified Code(s): R07.9 - Chest pain, unspecified
--- NOTE | 2023-09-21 05:58 | Electrocardiogram Report ---
Test Reason : Blood Pressure : / mmHG Vent. Rate : 073 BPM Atrial Rate : 073 BPM P-R Int : 146 ms QRS Dur : 088 ms QT Int : 442 ms P-R-T Axes : 054 -41 019 degrees QTc Int : 486 ms Sinus rhythm with frequent Premature ventricular complexes Possible Left atrial enlargement Left axis deviation Left ventricular hypertrophy Abnormal ECG When compared with ECG of 19-SEP-2023 12:11, QT has lengthened Confirmed by Gerhard Christian ([id number]) on 09/21/2023 5:57:34 AM Referred By: REFERRED SELF Confirmed By:Clinton Christian
--- NOTE | 2023-09-22 13:55 | Discharge Summary ---
Date of Service September 20, 2023 Admission HPI Per Admitting Provider Eden Hernandez is an 83 year old female who presents to the ER with chest pain. Triage note appears different to the history she current is telling me. Triage reports chest pain in upper epigastric area radiating to lower neck and bilateral shoulder starting last night then woke up with persistent symptoms this morning therefore called 911. Total 324mg PO aspirin given prior to ER. x2 nitroglycerin took pain from 9/10 to 0/10. Her main complaint on admission is bilateral neck pain which is not reproducible but is worse on rotating her head. She report always having intermittent chest pains which is no worse today than any other day (her catalog specialist notes chronic atypical chest discomfort). She felt this is her reflux. The neck pain started last night around 8pm, she is unsure how long it lasted but it was not that severe and she was able to fall asleep. Today she woke up initially without symptoms however while getting dressed her neck pain returned and did not get better with aspirin therefore she called EMS. She reports this is currently 10/10 however when I returned without having received pharmacological intervention this went down to a 5/10 with repositioning alone. She notes this neck pain is better on exertion when she is moving around as she thinks about it less. She has a longstanding history of palpitation related to ventricular bigeminy with intolerance to beta-blockers and diltiazem therefore currently is not on any treatment for this. She underwent cardiac catheterization for atypical chest pain and frequent PVCs [place] [address] Christian with non -obstructive coronary artery disease at that time. Principal Diagnosis NSTEMI Discharge Exam She is alert and oriented x3. HEENT: Extraocular movements were intact. Neuro: Cranial nerves intact Neck: Palpation of the neck and trapezius area did not elicit pain. Lungs: Lungs are clear to auscultation bilaterally. Cardiac: The rhythm was regular. S1 and S2 were normal. Extremities: Patient has bilateral radial pulses that are equal in intensity. Skin: There are no rashes noted on examination today. Discharge Data Allergies Allergy/AdvReac Type Severity Reaction Status Date / Time diltiazem AdvReac Intermediate Verified 09/19/23 13:13 metoprolol AdvReac Intermediate Verified 09/19/23 13:13 nebivolol AdvReac Intermediate Verified 09/19/23 13:13 Consultations 09/19/23 15:44 ED Decision to Admit Stat 09/19/23 16:32 Consult Cardiology Routine Hospital Course (1) Non-ST elevation NE (NSTEMI): Unclear symptoms actually from this as ongoing for hours with only slight troponin rise. Suspected NSTEMI due to troponin increase with no alternative explanation and triage note concerning for ACS. ASA 324mg PO given prior to hospital, continue 81mg PO daily Intolerant to beta-blockers previously Continue atorvastatin 80mg PO HS Cardiac markers were not indicative of acute coronary syndrome. Consult cardiology: appreciate input. No further cardiac intervention at this time. Elevated troponin likely caused from hypertension. (2) Coronary artery disease: non-obstructive on cath October 2018 (3) PVC (premature ventricular contraction): Known to have frequent PVCs, often bigeminy, intolerant to BB and diltiazem Monitor for NSVT/VT overnight Total Time Total Time Spent Total Time Spent (In Minutes): 32 Discharge Plan Discharge Items Patient Disposition: Home - Self-Care Reason For Visit: CHEST PAIN RULE OUT NE Discharge Diagnosis: chest pain Activity: Resume your previous activity Non-emergency contact: Primary Care Provider Call non-emergency contact if: you have any medication questions Follow-up/Referrals: Dom Dahl, [Primary Care Provider] - 09/26/23 10:30 am (PCP follow up: 09/26/23 @ 10:30 with P/A Agnes) Diet: Regular Addtl Attending Provider Instructions: recommend followup with your PCP in 1-2 weeks Pending Studies at Discharge: No Stand-Alone Forms: My [employer], Smoking Cessation Medications and DC Order Prescriptions: Continued famotidine 40 mg tablet 40 mg PO HS Qty: 90 3RF Rx Instructions: TAKE 1 TABLET BY MOUTH AT BEDTIME atorvastatin 80 mg tablet 80 mg PO HS Qty: 90 3RF Centrum Silver 400-250 mcg Tablet,Chewable 1 tab PO QAM Discharge Orders: Discharge Order (Routine); Ordered 09/20/23 Ordered By: Casey Cruz/Other Patient Handouts: A1C Admission Data Admit Date/Time: 09/19/23 16:31 Attending Provider: Casey Suárez Admit Provider: Jacques Kent Primary Care Provider: Dom Dahl Other Providers: Jacques Kent; Gerhard Christian Other Interventions: Discharge Summary Assessment (RN) Last Done: 09/20/23 16:44 Coding Level of Care Code 45149 INP/OBS DISCH >30 MIN Diagnoses Non-ST elevation NE (NSTEMI) I21.4 Coronary artery disease I25.10 PVC (premature ventricular contraction) I49.3
== END 2023-09-20 17:00 | disposition home or self-care (01) ==
LOC: 2S 12:05 → ED 12:05 → SUATTDRO 16:31 → 2S 20:09
DX: I25.10 Atherosclerotic heart disease of native coronary artery without angina pectoris; I08.0 Rheumatic disorders of both mitral and aortic valves; R79.89 Other specified abnormal findings of blood chemistry; R07.2 Precordial pain; Z88.8 Allergy status to other drugs, medicaments and biological substances; Z79.899 Other long term (current) drug therapy; R06.00 Dyspnea, unspecified; I49.3 Ventricular premature depolarization; R73.03 Prediabetes; Z82.49 Family history of ischemic heart disease and other diseases of the circulatory system; Z82.3 Family history of stroke